=== PATIENT | female | born 1995 | race African-American/Black ===

== ENCOUNTER 2017-02-18 10:04 | Emergency (ER) | payer SELFPAY ==
[~2017-02-18] VITALS: Ht 165.1 cm; Wt 54.4 kg
[2017-02-18] MEDS: Ondansetron ODT 8mg tab ORAL ONE ×2 (10:18→10:21)
[2017-02-18] MEDS ORDERED: Lidocaine 2% Visc 15ml soln ORAL ONE (11:00)
[2017-02-18] MEDS ORDERED: Dicyclomine HCl 10mg/5ml oral soln ORAL ONE (11:00)
[2017-02-18] MEDS ORDERED: Mylanta II UD 30ml ORAL ONE (11:00)
[2017-02-18] MEDS ORDERED: Metoclopramide 10mg/2ml Inj IVP ONE (11:00)
--- NOTE | 2017-02-18 11:03 | Emergency Room Report ---
History of Present Illness General Chief Complaint: Nausea Source: Patient Present Illness HPI 21YOF BIBEMS with "cyclic vomiting syndrome." Smokes marijuana daily. Denies abd pain, urinary complaints, fever/chills, diarrhea. Patient endorses vomiting but RN observing patient only spitting into a bag, no active emesis. Patient makes specific request for IV dialudid or ativan for syndrome in addition to GI cocktail and IV reglan. Allergies: Coded Allergies: No Known Allergies (Unverified , 02/18/17) Patient History Past Medical History: other - cyclic vomiting syndrome Past Surgical History: none Pertinent Family History: none Social History: Reports: drug use, smoking, Denies: alcohol use Now: No Immunizations: UTD Reviewed Nursing Documentation: PMH: Agreed, PSxH: Agreed Nursing Documentation-PMH Past Medical History: No Stated History Review of Systems All Other Systems: negative except mentioned in HPI Physical Exam Vital Signs Date Time Temp Pulse Resp B/P Pulse Ox O2 Delivery O2 Flow Rate FiO2 02/18/17 09:59 97.9 80 20 14/88 99 Room Air Sp02 EP Interpretation: reviewed, normal General Appearance: normal inspection, well appearing, no apparent distress, alert, GCS 15, non-toxic Head: normocephalic, atraumatic Eyes: bilateral eye EOMI, bilateral eye PERRL ENT: normal ENT inspection, hearing grossly normal, normal voice Neck: normal inspection, full range of motion, supple, no bony tend Respiratory: normal inspection, lungs clear, normal breath sounds, no respiratory distress, no retraction, no wheezing Cardiovascular #1: regular rate, rhythm, no edema Gastrointestinal: normal inspection, normal bowel sounds, non tender, soft, no guarding, no hernia Genitourinary: no CVA tenderness Musculoskeletal: normal inspection, back normal, normal range of motion, Momo' s Sign negative Neurologic: normal inspection, alert, oriented x3, responsive, employee service officer III-XII nml as tested, motor strength/tone normal, speech normal Psychiatric: normal inspection, judgement/insight normal, mood/affect normal Skin: normal inspection, normal color, no rash Medical Decision Making Diagnostic Impression: Primary Impression: Nausea and vomiting in adult patient Additional Impression: Marijuana abuse ER Course 21YOF with 1 day of nausea/vomiting and alleged history of cyclic vomiting syndrome but continues to smoke marijuana daily VSS. Afebrile. No focal abd ttp on exam Improvement in symptoms s/p IV reglan and GI cocktail Advised to STOP smoking MJ Low suspicion for acute bacterial or surgical process requiring additional evaluation, lab testing, imaging or admission given no focal abd ttp on serial exam, stable vital signs, no fever. Advised PMD followup as needed DC home Last Vital Signs Date Time Temp Pulse Resp B/P Pulse Ox O2 Delivery O2 Flow Rate FiO2 02/18/17 09:59 97.9 80 20 14/88 99 Room Air Status: improved Disposition: HOME, SELF-CARE Referrals: NOT CHOSEN IPA/,REFERRING (PCP) MIRYAM TORIBIO M.D. February 18, 2017 11:03
[2017-02-18 11:05] LABS: APPEARANCE,URINE SLIGHTLY CLOUDY; KETONES,URINE NEGATIVE (NEGATIVE); LEUKOCYTE ESTERASE ,URINE 1+ (NEGATIVE); NITRITE,URINE NEGATIVE (NEGATIVE); PH,URINE 8 (4.5-8.0); PROTEIN,URINE NEGATIVE (NEGATIVE); UROBILINOGEN,URINE NORMAL MG/DL (0.0-1.0)
[2017-02-18 11:19] LABS: AMORPHOUS SEDIMENT,UR FEW /LPF; BACTERIA,URINE FEW /HPF; SQUAMOUS EPITHELIAL CELL,UR FEW /LPF (NONE/OCC); WBC,URINE 0-2 /HPF (0 - 2)
[2017-02-18 12:00] VITALS: BP 138/88
[2017-02-18 12:25] VITALS: BP 138/88
== END 2017-02-18 12:25 | disposition home or self-care (01) ==
LOC: EDBD 10:04 → EMR 10:50
DX: R11.2 Nausea with vomiting, unspecified (principal); F12.10 Cannabis abuse, uncomplicated
CPT/HCPCS: 80300; 81003; 81025; 96374; 99284; J2765; Q0162